=== PATIENT | male | born 1960 | race Caucasian/White ===

== ENCOUNTER 2020-05-04 15:31 | Inpatient (IN) | payer OTHER ==
[2020-05-04] MEDS ORDERED: IBUPROFEN 400 MG TABLET (FP) PO PRN (18:21)
[2020-05-04] MEDS ORDERED: BISMUTH SUBSALICYLATE 524 MG/30 ML UD PO PRN (18:21)
[2020-05-04] MEDS ORDERED: ACETAMINOPHEN 325 MG TABLET (FP) PO PRN ×2 (18:21)
[2020-05-04] MEDS ORDERED: MENTHOL/PHENOL 1 EACH UD MM PRN (18:21)
[2020-05-04] MEDS ORDERED: MAGNESIUM CITRATE 300 ML BOTTLE PO PRN (18:21)
[2020-05-04] MEDS ORDERED: MAG HYDROX/AL HYDROX/SIMETH 30 ML UNIT-DOSE CUP PO PRN (18:21)
[2020-05-04] MEDS ORDERED: ONDANSETRON *ODT* 4 MG TABLET SL PRN (18:21)
[2020-05-04] MEDS ORDERED: MAGNESIUM HYDROX 2400MG/30ML ORAL SUSPENSION 30 ML CUP PO PRN (18:21)
[2020-05-04 18:45] VITALS: BMI 25.8
[2020-05-04] MEDS ORDERED: METHADONE HCL 10 MG TABLET (FOR DETOX USE ONLY) PO ONE (21:30)
[2020-05-04] MEDS: MELATONIN 5 MG TABLETS PO SCH (23:18)
[2020-05-04] MEDS: THIAMINE HCL 100 MG TABLET (FP) PO SCH (23:19)
[2020-05-05] MEDS: cloNIDine HCL 0.1 MG TABLET PO PRN (05:47)
[2020-05-05] MEDS ORDERED: METHADONE HCL 5 MG TABLET (FOR DETOX USE ONLY) ONE (09:00)
[2020-05-05] MEDS ORDERED: METHADONE HCL 10 MG TABLET (FOR DETOX USE ONLY) ONE (09:00)
[2020-05-05] MEDS ORDERED: METHADONE (DETOX) 20 MG, METHADONE (DETOX) 5 MG PO ONE (10:00)
[2020-05-05] MEDS: PRENATAL VITAMINS W/ FOLIC ACID TABLET (FP) PO SCH (10:21)
[2020-05-05 11:23] LABS: HEMATOCRIT 37.7 % (35.4-49); HEMOGLOBIN 12.8 GM/dL (11.7-16.9); MCH 28.3 pg (25.7-33.7); MEAN CELL VOLUME 83.3 fl (80-96); MEAN PLT VOLUME 8.4 fl (7.5-11.1); PLATELET COUNT 165 K/MM3 (134-434); RBC 4.53 M/mm3 (4.00-5.60); RDW 13.8 % (11.9-15.9); WHITE BLOOD COUNT 4.2 K/mm3 (4.0-10.0)
[2020-05-05 11:25] LABS: POTASSIUM 4.3 mmol/L (3.5-5.1)
[2020-05-05 11:27] LABS: ALBUMIN 3.4 g/dl (3.4-5.0); CALCIUM 8.7 mg/dL (8.5-10.1)
[2020-05-05 11:28] LABS: BLOOD UREA NITROGEN 13.9 mg/dL (7-18)
[2020-05-05 11:31] LABS: CREATININE 0.6 mg/dL (0.55-1.3)
[2020-05-05 11:32] LABS: TOT PROT 7.2 g/dl (6.4-8.2)
[2020-05-05] MEDS: MELATONIN 5 MG TABLETS PO SCH (22:29)
[2020-05-05] MEDS: THIAMINE HCL 100 MG TABLET (FP) PO SCH (22:30)
[2020-05-05] MEDS: diazePAM 5 MG TABLET PO PRN (22:32)
[2020-05-06] MEDS ORDERED: MASKS NR ONE (06:58)
[2020-05-06] MEDS: cloNIDine HCL 0.1 MG TABLET PO PRN (07:25)
[2020-05-06] MEDS ORDERED: METHADONE HCL 10 MG TABLET (FOR DETOX USE ONLY) PO ONE (10:00)
[2020-05-06] MEDS: PRENATAL VITAMINS W/ FOLIC ACID TABLET (FP) PO SCH (10:07)
[2020-05-06] MEDS: diazePAM 5 MG TABLET PO PRN ×2 (18:02→22:22)
[2020-05-06] MEDS: THIAMINE HCL 100 MG TABLET (FP) PO SCH (22:22)
[2020-05-06] MEDS: MELATONIN 5 MG TABLETS PO SCH (22:23)
[2020-05-07] MEDS ORDERED: METHADONE HCL 5 MG TABLET (FOR DETOX USE ONLY) ONE (09:36)
[2020-05-07] MEDS ORDERED: METHADONE HCL 10 MG TABLET (FOR DETOX USE ONLY) ONE (09:37)
[2020-05-07] MEDS ORDERED: METHADONE (DETOX) 10 MG, METHADONE (DETOX) 5 MG PO ONE (10:00)
[2020-05-07] MEDS: PRENATAL VITAMINS W/ FOLIC ACID TABLET (FP) PO SCH (10:10)
[2020-05-07] MEDS: MELATONIN 5 MG TABLETS PO SCH (22:15)
[2020-05-07] MEDS: METHOCARBAMOL 500 MG TABLET PO PRN (22:16)
[2020-05-07] MEDS: diazePAM 5 MG TABLET PO PRN (22:16)
[2020-05-07] MEDS: THIAMINE HCL 100 MG TABLET (FP) PO SCH (22:16)
[2020-05-08] MEDS ORDERED: METHADONE HCL 10 MG TABLET (FOR DETOX USE ONLY) PO ONE (10:00)
[2020-05-08] MEDS: PRENATAL VITAMINS W/ FOLIC ACID TABLET (FP) PO SCH (10:08)
[2020-05-08] MEDS: METHOCARBAMOL 500 MG TABLET PO PRN ×2 (10:10→22:19)
[2020-05-08] MEDS: hydrOXYzine PAMOATE 25 MG CAPSULE (FP) PO PRN ×2 (10:10→22:19)
[2020-05-08] MEDS: MELATONIN 5 MG TABLETS PO SCH (22:19)
[2020-05-08] MEDS: THIAMINE HCL 100 MG TABLET (FP) PO SCH (22:19)
[2020-05-08 22:46] VITALS: TEMP 97.3
[2020-05-09 06:00] VITALS: BP 122/63; PULSE 62
[2020-05-09] MEDS ORDERED: METHADONE HCL 5 MG TABLET (FOR DETOX USE ONLY) PO ONE (06:00)
== END 2020-05-09 09:27 | disposition home or self-care (01) | DRG 773 ==
LOC: YASAS 15:31 → Y6N 21:24
PROVIDERS: ADMIT Allergy & Immunology; ATTEND Allergy & Immunology
PROC: HZ2ZZZZ Detoxification Services for Substance Abuse Treatment (ICD-10-PCS; principal; 2020-05-04)
DX: F11.23 Opioid dependence with withdrawal (principal); F19.24 Other psychoactive substance dependence with psychoactive substance-induced mood disorder; F41.9 Anxiety disorder, unspecified; K21.9 Gastro-esophageal reflux disease without esophagitis; K29.50 Unspecified chronic gastritis without bleeding; Z90.49 Acquired absence of other specified parts of digestive tract; Z56.0 Unemployment, unspecified; Z59.0 Homelessness
CPT/HCPCS: 36415; 80053; 85027; 86780; 93005; 93010; C9803; J0735; U0003